=== PATIENT | male | born 1960 | race Two or more races ===

== ENCOUNTER 2017-07-04 18:01 | Emergency (ER) | payer MEDICAID, OTHER ==
[~2017-07-04] VITALS: Ht 175.3 cm; Wt 104.3 kg
[2017-07-04 18:16] VITALS: BP 137/70
== END 2017-07-04 19:55 | disposition home or self-care (01) ==
LOC: ER 18:01
DX: S46.819A Strain of other muscles, fascia and tendons at shoulder and upper arm level, unspecified arm, initial encounter (principal); G44.209 Tension-type headache, unspecified, not intractable; X58.XXXA Exposure to other specified factors, initial encounter; Y93.89 Activity, other specified; Y92.89 Other specified places as the place of occurrence of the external cause; Y99.8 Other external cause status
CPT/HCPCS: 70450